=== PATIENT | female | born 1935 | race Caucasian/White ===

== ENCOUNTER 2017-11-07 09:59 | Day surgery (SDC) | payer MEDICARE ==
[~2017-11-07 09:59] MED LIST: Acetaminophen TAB* 325 MG PO PRN; Buffered Lidocaine 0.9% SYRIN* 5 ML/SYR SYRINGE INTRADERM ONE; Cyclopentolate 1% OPTH.SOL* 2 ML BTL ONE; Ketorolac 0.5% OPHTH (NF) 0.5 % 5 ML BTL ONE; Lidocaine 2% EPI 1:200000 MPF* 20 ML VIAL ONE; Midazolam* 1 MG/ML 2 ML VIAL (2 MG) ONE; Neomycin/Polymy/Dex OPTH.SUSP* MAXITROL 0.1% 5 ML ONE; Phenylephrine 2.5% OPTH.SOL* 2 ML BTL ONE; Povidone Iodine 5% OPTH* 30 ML BTL ONE; Proparacaine 0.5% OPHTH.SOL* 15 ML BTL ONE; acetaZOLAMIDE TAB* 250 MG ONE
[2017-11-07 13:19] VITALS: BP 111/67
[2017-11-07] MEDS ORDERED: Lidocaine 1% MPF* 2 ML VIAL ONE (14:28)
--- NOTE | 2017-11-08 07:35 | OP ---
DATE OF OPERATION: 11/07/17 - [facility] DATE OF : 33 SURGEON: Orlando Neely MD. PREOPERATIVE DIAGNOSIS: Cataract, right eye. POSTOPERATIVE DIAGNOSIS: Cataract, right eye. OPERATIVE PROCEDURE: Extracapsular cataract extraction with intraocular lens implant, right eye. DESCRIPTION OF PROCEDURE: The patient was brought to the operating room after being given 1/2% Alcaine with epinephrine drops in the preoperative area. The eye was prepped and draped in the usual sterile fashion. Sterile drape and eyelid speculum were placed. Again, topical 1/2% Alcaine with epinephrine was given. A paracentesis incision was made at the 9 o'clock position with the No.75 blade. Clear cornea incision 2.2 x 2.2-mm was created at the 12 o'clock position starting at the anterior limbus using the 2.2-mm keratome. The anterior chamber was irrigated with 0.4 mL of 1% non-preservative intracameral lidocaine and filled with DisCoVisc. A capsulorrhexis was completed using the cystotome and the Utrata forceps. Hydrodissection was performed with balanced salt solution. The lens nucleus was removed with the Phacoemulsification handpiece without incident. Cortex was removed with the irrigation-aspiration handpiece. The capsular bag was re-inflated using DisCoVisc and an SN60WF 21.5 implant was inserted with the shooter. The pupil was only about 4 mm. A Malyugin ring was placed prior to capsulorrhexis and removed after insertion of the lens. The irrigation-aspiration handpiece was used to remove all residual DisCoVisc. The eye was refilled with balanced salt solution and the wound checked and found to be watertight. Topical Maxitrol drops were given. Indication for complex cataract surgery: Iris abnormality requiring pupil dilation device. [id number]/[facility] #: [id number] MTDD
== END 2017-11-07 12:55 | disposition home or self-care (01) ==
LOC: OREAST 09:59
PROVIDERS: ATTEND Specialist
DX: H25.811 Combined forms of age-related cataract, right eye (principal); Q13.2 Other congenital malformations of iris; I10 Essential (primary) hypertension; K21.9 Gastro-esophageal reflux disease without esophagitis; E53.8 Deficiency of other specified B group vitamins; E78.00 Pure hypercholesterolemia, unspecified; R73.01 Impaired fasting glucose
CPT/HCPCS: A9270-GY; J2250; V2632

== ENCOUNTER 2017-11-14 09:30 | Day surgery (SDC) | payer MEDICARE ==
[~2017-11-14 09:30] MED LIST changes: -Cyclopentolate 1% OPTH.SOL* 2 ML BTL ONE; -Ketorolac 0.5% OPHTH (NF) 0.5 % 5 ML BTL ONE; -Lidocaine 2% EPI 1:200000 MPF* 20 ML VIAL ONE; -Midazolam* 1 MG/ML 2 ML VIAL (2 MG) ONE; -Neomycin/Polymy/Dex OPTH.SUSP* MAXITROL 0.1% 5 ML ONE; -Phenylephrine 2.5% OPTH.SOL* 2 ML BTL ONE; -Povidone Iodine 5% OPTH* 30 ML BTL ONE; -Proparacaine 0.5% OPHTH.SOL* 15 ML BTL ONE; -acetaZOLAMIDE TAB* 250 MG ONE
[2017-11-14] MEDS ORDERED: Midazolam* 1 MG/ML 2 ML VIAL (2 MG) ONE (11:25)
[2017-11-14] MEDS ORDERED: Cyclopentolate 1% OPTH.SOL* 2 ML BTL ONE (12:11)
[2017-11-14] MEDS ORDERED: Ketorolac 0.5% OPHTH (NF) 0.5 % 5 ML BTL ONE (12:11)
[2017-11-14] MEDS ORDERED: Phenylephrine 2.5% OPTH.SOL* 2 ML BTL ONE (12:11)
[2017-11-14] MEDS ORDERED: Lidocaine 2% EPI 1:200000 MPF* 20 ML VIAL ONE (12:11)
[2017-11-14] MEDS ORDERED: Povidone Iodine 5% OPTH* 30 ML BTL ONE (12:11)
[2017-11-14] MEDS ORDERED: acetaZOLAMIDE TAB* 250 MG ONE (12:11)
[2017-11-14] MEDS ORDERED: Proparacaine 0.5% OPHTH.SOL* 15 ML BTL ONE (12:11)
[2017-11-14] MEDS ORDERED: Neomycin/Polymy/Dex OPTH.SUSP* MAXITROL 0.1% 5 ML ONE (12:11)
[2017-11-14] MEDS ORDERED: Lidocaine 1% MPF* 2 ML VIAL ONE (12:11)
[2017-11-14 12:13] VITALS: BP 113/71
--- NOTE | 2017-11-14 16:08 | OP ---
DATE OF OPERATION: 11/14/2017 - [facility] DATE OF : 1935. SURGEON: Orlando Neely M.D. PREOPERATIVE DIAGNOSIS: Cataract left eye. POSTOPERATIVE DIAGNOSIS: Cataract left eye. OPERATIVE PROCEDURE: Extracapsular cataract extraction with intraocular lens implant left eye. DESCRIPTION OF PROCEDURE: The patient was brought to the operating room after being given 1/2% Alcaine with epinephrine drops in the preoperative area. The eye was prepped and draped in the usual sterile fashion. Sterile drape and eyelid speculum were placed. Again, topical 1/2% Alcaine with epinephrine was given. A paracentesis incision was made at the 3 o'clock position with the No.75 blade. Clear cornea incision 2.2 x 2.2-mm was created at the 6 o'clock position starting at the anterior limbus using the 2.2-mm keratome. The anterior chamber was irrigated with 0.4 mL of 1% non-preservative intracameral lidocaine and filled with DisCoVisc. A capsulorrhexis was completed using the cystotome and the Utrata forceps. Hydrodissection was performed with balanced salt solution. The lens nucleus was removed with the Phacoemulsification handpiece without incident. Cortex was removed with the irrigation-aspiration handpiece. The capsular bag was re-inflated using DisCoVisc and an [id number] 21 implant was inserted with the shooter. Prior to capsulorrhexis, a Malyugin ring was used to dilate the pupil because it was only about 4 mm. The irrigation-aspiration handpiece was used to remove all residual DisCoVisc. The eye was refilled with balanced salt solution and the wound checked and found to be watertight. Topical Maxitrol drops were given. Indication for complex cataract surgery: Iris abnormality. [id number]/[facility] #: [id number] MARIEL
== END 2017-11-14 12:11 | disposition home or self-care (01) ==
LOC: OREAST 09:30
PROVIDERS: ATTEND Specialist
DX: H25.812 Combined forms of age-related cataract, left eye (principal); Q13.2 Other congenital malformations of iris; I10 Essential (primary) hypertension; K21.9 Gastro-esophageal reflux disease without esophagitis; E78.4 Other hyperlipidemia; E55.9 Vitamin D deficiency, unspecified
CPT/HCPCS: A9270-GY; J2250; V2632

== ENCOUNTER 2023-07-22 11:34 | Inpatient (IN) ==
[2023-07-22] MEDS ORDERED: Ondansetron 4 mg VIAL 2 MG/ML 2 ml VIAL IV ONE (11:50)
[2023-07-22 13:16] LABS: ABS Lymphocytes 0.3 10^3/uL (1.0-4.8); ABS Monocytes 0.7 10^3/uL (0.0-0.9); Hematocrit 30.7 % (35-45); Hemoglobin 10.5 g/dL (11.5-14.3); Lymphocyte % 3.6 %; Mean Corpuscular Hemoglobin 32.6 pg (27-33); Mean Corpuscular Hgb Conc 34.1 g/dL (31-36); Mean Corpuscular Volume 95.4 fL (80-97); Mean Platelet Volume 6.9 fL (7.5-11.2); Platelet Count 300 10^3/uL (150-450); Red Blood Count 3.22 10^6/uL (3.63-4.92); Red Cell Distribution Width 13.3 % (12-17)
[2023-07-22 13:33] LABS: Albumin 2.8 g/dL (3.2-5.2); Albumin/Globulin Ratio 1.3 (1-3); Calcium 7.9 mg/dL (8.6-10.3); Creatinine, Serum 0.73 mg/dL (0.51-0.95); Globulin 2.2 g/dL (2-4); Potassium 4.2 mmol/L (3.5-5.0); Total Bilirubin 0.7 mg/dL (0.2-1.0); eGFR CKD-EPI 78.6 (>60)
[2023-07-22] MEDS ORDERED: Ondansetron 4 mg VIAL 2 MG/ML 2 ml VIAL IV PRN (14:53)
[2023-07-22] MEDS ORDERED: Heparin 5000 UNITS/ML 1 mL VIAL SUBCUT ONE (16:18)
[2023-07-22] MEDS: Acetaminophen IV 1 GM/100ML 1,000 MG/100 ML BAG IV SCH ×2 (16:38→23:07)
[2023-07-22] MEDS ORDERED: CMC:Simvastatin 10 mg TAB (NF) PO SCH (21:00)
[2023-07-22] MEDS: Morphine 2 MG/ML SYRINGE IV PRN (23:15)
[2023-07-23] MEDS: Lactated Ringers 1000 ml BAG 1,000 ML IV SCH ×2 (00:26→21:03)
[2023-07-23] MEDS: Acetaminophen IV 1 GM/100ML 1,000 MG/100 ML BAG IV SCH ×3 (05:02→21:03)
[2023-07-23 07:47] LABS: ABS Lymphocytes 0.8 10^3/uL (1.0-4.8); ABS Monocytes 0.8 10^3/uL (0.0-0.9); Eosinophil % 0.3 %; Hematocrit 26.4 % (35-45); Lymphocyte % 11.7 %; Mean Corpuscular Hgb Conc 34.1 g/dL (31-36); Mean Corpuscular Volume 96.6 fL (80-97); Mean Platelet Volume 7.2 fL (7.5-11.2); Nucleated Red Blood Cells % 0.1 %/100WBC (0.0-0.8); Platelet Count 228 10^3/uL (150-450); Red Blood Count 2.73 10^6/uL (3.63-4.92); Red Cell Distribution Width 13.7 % (12-17); White Blood Count 6.5 10^3/uL (3.8-11.8)
[2023-07-23 08:23] LABS: Calcium 7.6 mg/dL (8.6-10.3); Creatinine, Serum 0.7 mg/dL (0.51-0.95); Potassium 4.4 mmol/L (3.5-5.0); eGFR CKD-EPI 82.6 (>60)
[2023-07-23] MEDS ORDERED: Influenza vaccine *QUAD* *2023-24* 0.5 ML SYRINGE IM ONE (09:00)
[2023-07-23] MEDS ORDERED: Cholecalciferol (VIT D3) 1,000 unit TAB PO SCH (09:00)
[2023-07-23] MEDS ORDERED: Bupivacaine 0.5% SDV PF 30ML VIAL ONE (15:07)
[2023-07-23] MEDS ORDERED: Propofol 10 MG/ML 20 ML BTL ONE (16:26)
[2023-07-23] MEDS ORDERED: Lidocaine 2% PF 5 ML VIAL ONE (16:26)
[2023-07-23] MEDS ORDERED: fentaNYL 100 mcg/2 ml 50 MCG/ML VIAL IV PRN (16:45)
[2023-07-23] MEDS ORDERED: Ondansetron 4 mg VIAL 2 MG/ML 2 ml VIAL IV PRN (16:45)
[2023-07-23] MEDS ORDERED: Metoclopramide 5 MG/ML VIAL (10 mg) IV PRN (16:45)
[2023-07-23] MEDS ORDERED: HYDROcodone/ACETAMIN 5/325 mg TAB PO PRN (16:45)
[2023-07-23] MEDS ORDERED: Naloxone 0.4 mg VIAL 0.4 mg/ml 1 ml VIAL IV PRN (16:45)
[2023-07-23] MEDS ORDERED: ceFAZolin 2 GM in NS PREMIX 2 GM/100 ML BAG IVPB ONE (16:53)
[2023-07-23] MEDS ORDERED: Phenylephrine 40 mcg/mL 10mL (400mcg) SYRINGE ONE (17:08)
[2023-07-23] MEDS ORDERED: fentaNYL 100 mcg/2 ml 50 MCG/ML VIAL ONE ×2 (17:25→19:16)
[2023-07-23] MEDS ORDERED: Dexamethasone IV 4 MG/ML VIAL 1 ml VIAL ONE (19:00)
[2023-07-23] MEDS ORDERED: Ondansetron 4 mg VIAL 2 MG/ML 2 ml VIAL ONE (19:00)
[2023-07-24] MEDS: ceFAZolin 1 GM ADVAN 1 GM in NS 0.9% 50 ML 50 ML IVPB SCH ×3 (00:44→16:19)
[2023-07-24] MEDS: Benzocaine/Menthol LOZ MT PRN (01:47)
[2023-07-24 02:37] LABS: Urine Appearance Cloudy; Urine Bilirubin Negative (Negative); Urine Blood Negative (Negative); Urine Color Yellow; Urine Glucose Negative (Negative); Urine Ketones Trace (Negative); Urine Nitrite Positive (Negative); Urine Protein Negative (Negative); Urine Specific Gravity 1.025 (1.002-1.030); Urine Urobilinogen Negative (Negative)
[2023-07-24] MEDS: Acetaminophen IV 1 GM/100ML 1,000 MG/100 ML BAG IV SCH ×4 (03:02→20:52)
[2023-07-24 03:09] LABS: Budding Yeast Present (Absent); Urine Bacteria 1+ (Absent); Urine Red Blood Cell Trace(0-2/hpf) (Absent); Urine Squamous Epithelial Cell Present (Absent); Urine White Blood Cell Trace(0-5/hpf) (Absent); Urine Yeast Present (Absent)
[2023-07-24] MEDS: Morphine 2 MG/ML SYRINGE IV PRN (06:17)
[2023-07-24 08:46] LABS: ABS Lymphocytes 0.4 10^3/uL (1.0-4.8); ABS Monocytes 0.4 10^3/uL (0.0-0.9); ABS Neutrophils 6.9 10^3/uL (1.5-7.6); Hematocrit 24.7 % (35-45); Hemoglobin 8.3 g/dL (11.5-14.3); Lymphocyte % 5.2 %; Mean Corpuscular Hemoglobin 32.6 pg (27-33); Mean Corpuscular Hgb Conc 33.8 g/dL (31-36); Mean Corpuscular Volume 96.7 fL (80-97); Mean Platelet Volume 6.9 fL (7.5-11.2); Platelet Count 250 10^3/uL (150-450); Red Blood Count 2.55 10^6/uL (3.63-4.92); Red Cell Distribution Width 13.4 % (12-17); White Blood Count 7.7 10^3/uL (3.8-11.8)
[2023-07-24 09:05] LABS: Calcium 7.7 mg/dL (8.6-10.3); Creatinine, Serum 0.64 mg/dL (0.51-0.95); Potassium 4.4 mmol/L (3.5-5.0); eGFR CKD-EPI 84.4 (>60)
[2023-07-24] MEDS: Enoxaparin 40 MG/0.4 ML SYR SUBCUT SCH (09:32)
[2023-07-24] MEDS ORDERED: Influenza vaccine *QUAD* *2023-24* 0.5 ML SYRINGE IM ONE (14:23)
[2023-07-24] MEDS: Polyethylene Glycol 3350 17 GM PACKET PO SCH (20:32)
[2023-07-24] MEDS: Senna TAB 8.6 mg TAB PO PRN (20:33)
[2023-07-25] MEDS: Acetaminophen IV 1 GM/100ML 1,000 MG/100 ML BAG IV SCH ×4 (03:14→21:00)
[2023-07-25] MEDS: Lactated Ringers 1000 ml BAG 1,000 ML IV SCH (03:18)
[2023-07-25] MEDS: Polyethylene Glycol 3350 17 GM PACKET PO SCH ×2 (08:30→20:53)
[2023-07-25] MEDS: Enoxaparin 40 MG/0.4 ML SYR SUBCUT SCH (08:30)
[2023-07-25] MEDS ORDERED: Magnesium Hydroxide LIQ 30 ML UDC PO PRN (11:05)
[2023-07-25] MEDS ORDERED: Polyethylene Glycol 3350 17 GM PACKET PO PRN (11:05)
[2023-07-25] MEDS ORDERED: Senna TAB 8.6 mg TAB PO PRN (11:05)
[2023-07-25] MEDS: Magnesium Hydroxide LIQ 30 ML UDC PO SCH ×2 (12:15→21:16)
[2023-07-25 12:34] LABS: Rapid COVID-19 Molecular Undetected (Undetected)
[2023-07-25] MEDS ORDERED: Lactulose 30 ml UDC PO ONE (14:29)
[2023-07-25] MEDS: Senna TAB 8.6 mg TAB PO PRN (20:57)
[2023-07-26] MEDS: Acetaminophen IV 1 GM/100ML 1,000 MG/100 ML BAG IV SCH ×2 (03:08→09:00)
[2023-07-26] MEDS ORDERED: Lactulose 30 ml UDC PO ONE (08:21)
[2023-07-26] MEDS ORDERED: Sodium Phosphate ADULT ENEMA 133 ML BTL PR PRN (09:02)
[2023-07-26] MEDS: Polyethylene Glycol 3350 17 GM PACKET PO SCH (09:13)
[2023-07-26] MEDS: Benzocaine/Menthol LOZ MT PRN (09:15)
[2023-07-26] MEDS: Magnesium Hydroxide LIQ 30 ML UDC PO SCH (09:15)
[2023-07-26] MEDS: Enoxaparin 40 MG/0.4 ML SYR SUBCUT SCH (09:15)
[2023-07-26 09:59] VITALS: BP 96/53
== END 2023-07-26 14:20 | DRG 482 ==
LOC: ED 11:34 → EDHOLD 14:53 → SUATTDRO 14:53 → SSU 15:56
PROVIDERS: ADMIT Student in an Organized Health Care Education/Training Program; ATTEND Internal Medicine

== ENCOUNTER 2023-11-18 21:24 | Inpatient (IN) ==
[2023-11-18] MEDS: Lactated Ringers 1000 ml BAG 1,000 ML IV ONE (22:09)
[2023-11-18] MEDS: ceFAZolin 1 GM ADVAN 1 GM in NS 0.9% 50 ML 50 ML IVPB ONE (22:12)
[2023-11-18 22:17] LABS: ABS Basophils 0.1 10^3/uL (0.0-0.1); ABS Lymphocytes 0.7 10^3/uL (1.0-4.8); ABS Monocytes 0.4 10^3/uL (0.0-0.9); ABS Neutrophils 16.3 10^3/uL (1.5-7.6); Hematocrit 29.4 % (35-45); Hemoglobin 9.6 g/dL (11.5-14.3); Mean Corpuscular Hemoglobin 25.9 pg (27-33); Mean Corpuscular Hgb Conc 32.6 g/dL (31-36); Mean Corpuscular Volume 79.4 fL (80-97); Mean Platelet Volume 7.5 fL (7.5-11.2); Platelet Count 296 10^3/uL (150-450); Red Cell Distribution Width 18.6 % (12-17); White Blood Count 17.6 10^3/uL (3.8-11.8)
[2023-11-18 23:01] LABS: ALT 11 U/L (7-52); Albumin 2.9 g/dL (3.2-5.2); Albumin/Globulin Ratio 1.1 (1-3); Alkaline Phosphatase 48 U/L (35-149); Anion Gap 7 mmol/L (2-16); Blood Urea Nitrogen 21 mg/dL (6-24); C Reactive Protein 128.24 mg/L (<8.01); CO2 Carbon Dioxide 26 mmol/L (22-32); Calcium 8.1 mg/dL (8.6-10.3); Chloride 100 mmol/L (101-111); Creatinine, Serum 0.84 mg/dL (0.51-0.95); Globulin 2.7 g/dL (2-4); Glucose 122 mg/dL (70-100); Sodium 133 mmol/L (135-145); Total Bilirubin 0.5 mg/dL (0.2-1.0); Total Protein 5.6 g/dL (6.4-8.9); eGFR CKD-EPI 66.4 (>60)
[2023-11-18] MEDS: Vancomycin 1,000 MG in NS 0.9% 250 ml 250 ML IVPB ONE (23:22)
[2023-11-19] MEDS: Lactated Ringers 1000 ml BAG 1,000 ML IV ONE ×2 (00:14→01:35)
[2023-11-19 00:21] LABS: Potassium Redraw 3.6 mmol/L (3.5-5.0)
[2023-11-19] MEDS: cefTRIAXone 1 gm/50 mL D5W 1 GM/50 ML BAG IV ONE (00:30)
[2023-11-19 01:10] LABS: Urine Appearance Clear; Urine Bilirubin Negative (Negative); Urine Blood Negative (Negative); Urine Color Yellow; Urine Glucose Negative (Negative); Urine Ketones Negative (Negative); Urine Nitrite Negative (Negative); Urine Protein Trace (Negative); Urine Urobilinogen Negative (Negative); Urine pH 6.5 (5.0-8.0)
[2023-11-19 01:18] LABS: Erythrocyte Sed Rate 45 mm/Hr (0-29)
[2023-11-19] MEDS ORDERED: Vancomycin per Pharmacy 1 EA NOTE FOLLOW UP SCH (02:00)
[2023-11-19] MEDS: Lactated Ringers 1000 ml BAG 1,000 ML IV SCH (02:33)
[2023-11-19] MEDS: Cefepime 2 GM in Dextrose 2 GM/50 ML BAG IV SCH (04:10)
[2023-11-19 06:35] LABS: ABS Monocytes 0.4 10^3/uL (0.0-0.9); ABS Neutrophils 12.9 10^3/uL (1.5-7.6); ABS Nucleated RBC 0.01 10^3/ul; Hematocrit 28.1 % (35-45); Lymphocyte % 6.9 %; Mean Corpuscular Hemoglobin 25.7 pg (27-33); Mean Corpuscular Hgb Conc 31.9 g/dL (31-36); Mean Corpuscular Volume 80.6 fL (80-97); Mean Platelet Volume 7.9 fL (7.5-11.2); Platelet Count 235 10^3/uL (150-450); Red Blood Count 3.49 10^6/uL (3.63-4.92); Red Cell Distribution Width 18.8 % (12-17); White Blood Count 14.3 10^3/uL (3.8-11.8)
[2023-11-19 06:48] LABS: Calcium 7.6 mg/dL (8.6-10.3); Creatinine, Serum 0.64 mg/dL (0.51-0.95); Magnesium 1.6 mg/dL (1.9-2.7); Potassium 3.7 mmol/L (3.5-5.0); eGFR CKD-EPI 84.4 (>60)
[2023-11-19] MEDS ORDERED: fentaNYL Patch Check Q Shift NOTE SCH (07:00)
[2023-11-19] MEDS: Enoxaparin 40 MG/0.4 ML SYR SUBCUT SCH (08:23)
[2023-11-19] MEDS: Magnesium Sulf 4 GM/100 ML IV 4,000 MG/100 ML BAG IVPB ONE (11:17)
[2023-11-19] MEDS: Vancomycin 500 MG in NS 0.9% 250 ML IVPB SCH (11:53)
[2023-11-19] MEDS ORDERED: cefTRIAXone 1 gm/50 mL D5W 1 GM/50 ML BAG IV SCH (22:00)
[2023-11-19] MEDS ORDERED: cefTAZidime (*) 1 GM in NS 0.9% 50 ML 50 ML IVPB SCH (22:00)
[2023-11-20] MEDS ORDERED: fentaNYL PATCH 12 MCG/HR 1 PATCH TRANSDERM SCH (09:00)
[2023-11-20 09:20] LABS: ABS Lymphocytes 1.1 10^3/uL (1.0-4.8); ABS Monocytes 0.5 10^3/uL (0.0-0.9); ABS Neutrophils 6.9 10^3/uL (1.5-7.6); ABS Nucleated RBC 0.01 10^3/ul; Eosinophil % 0.3 %; Hematocrit 27.5 % (35-45); Hemoglobin 9.1 g/dL (11.5-14.3); Lymphocyte % 12.5 %; Mean Corpuscular Hemoglobin 26.1 pg (27-33); Mean Corpuscular Hgb Conc 33.2 g/dL (31-36); Mean Corpuscular Volume 78.5 fL (80-97); Mean Platelet Volume 7.7 fL (7.5-11.2); Nucleated Red Blood Cells % 0.1 %/100WBC (0.0-0.8); Platelet Count 256 10^3/uL (150-450); Red Cell Distribution Width 19.1 % (12-17); White Blood Count 8.5 10^3/uL (3.8-11.8)
[2023-11-20 09:35] LABS: Calcium 7.4 mg/dL (8.6-10.3); Creatinine, Serum 0.53 mg/dL (0.51-0.95); Potassium 3.7 mmol/L (3.5-5.0); eGFR CKD-EPI 88.3 (>60)
[2023-11-20] MEDS: Vancomycin Trough Check NOTE FOLLOW UP ONE (14:32)
[2023-11-20 14:53] LABS: C Reactive Protein 188.79 mg/L (<8.01)
[2023-11-21] MEDS: Vancomycin 750 MG in NS 0.9% 250 ML IVPB SCH (00:10)
[2023-11-21 05:47] LABS: ABS Eosinophils 0.1 10^3/uL (0.0-0.5); ABS Lymphocytes 1.3 10^3/uL (1.0-4.8); ABS Monocytes 0.5 10^3/uL (0.0-0.9); ABS Neutrophils 4.4 10^3/uL (1.5-7.6); ABS Nucleated RBC 0.01 10^3/ul; Hematocrit 25.6 % (35-45); Hemoglobin 8.5 g/dL (11.5-14.3); Lymphocyte % 20.2 %; Mean Corpuscular Hemoglobin 26.2 pg (27-33); Mean Corpuscular Volume 79.5 fL (80-97); Mean Platelet Volume 7.9 fL (7.5-11.2); Nucleated Red Blood Cells % 0.1 %/100WBC (0.0-0.8); Platelet Count 250 10^3/uL (150-450); Red Blood Count 3.22 10^6/uL (3.63-4.92); Red Cell Distribution Width 18.7 % (12-17); White Blood Count 6.2 10^3/uL (3.8-11.8)
[2023-11-21 06:05] LABS: C Reactive Protein 110.54 mg/L (<8.01); Calcium 7.3 mg/dL (8.6-10.3); Creatinine, Serum 0.48 mg/dL (0.51-0.95); Magnesium 1.8 mg/dL (1.9-2.7); Potassium 3.7 mmol/L (3.5-5.0); eGFR CKD-EPI 90.5 (>60)
[2023-11-21] MEDS: Magnesium Sulfate IV 1GM/100ML 1 GM/100 ML BAG IV ONE (09:00)
[2023-11-21 09:49] VITALS: BP 131/67
[2023-11-22] MEDS ORDERED: Vancomycin Trough Check NOTE FOLLOW UP ONE (11:30)
== END 2023-11-21 13:30 | disposition home or self-care (01) | DRG 871 ==
LOC: ED 21:24 → EDHOLD 11-19 01:26 → SUATTDRO 11-19 01:26 → MED 11-19 03:06
PROVIDERS: ADMIT Hospitalist; ATTEND Hospitalist